=== PATIENT | male | born 1970 | race Caucasian/White ===

== ENCOUNTER 2021-12-22 11:20 | Inpatient (IN) | payer BC, SELFPAY ==
[2021-12-22] VITALS (26 sets, daily range): BP systolic 111–156; BP diastolic 63–106; PULSE 68–102; RESP 13–22; TEMP 36.5–37.5; O2SAT 92–99
--- NOTE | 2021-12-22 11:15 | DI.RAD_ITS ---
Exam(s) XR CHEST 1V IN DI DEPT EXAM: XR CHEST 1V IN DI DEPT CLINICAL HISTORY: possible cva, r/o acute disease. TECHNIQUE: 2D digital imaging was performed. COMPARISON: No exams were available for comparison FINDINGS: Single AP portable view. Suboptimal inspiratory effort. Heart size is upper normal. The mediastinum is not widened. There is platelike atelectasis in the lung bases. No obvious confluent infiltrates nor pleural effusions. IMPRESSION: Platelike atelectasis in both lung bases. Suboptimal inspiration. DATA REPOSITORY: RADIATION DOSE DELIVERED: All CT scans at this facility use at least one of these dose optimization techniques: automated exposure control; mA and/or kV adjustment per patient size (includes targeted e xams where dose is matched to clinical indication); or iterative reconstruction.
--- NOTE | 2021-12-22 11:15 | RT.EKG_ITS ---
APPROVED REPORT Exam: Resting ECG Reason for Exam: possible cva Patient Location: E HR:70 bpm ECG Measurements Heart Rate 70 AXIS PA 141 P 41 QRSd 104 QRS 3 QT 411 T 33 QTc 443 Conclusion Sinus rhythm...normal P axis, V-rate 60- 99 ST elev, probable normal early repol pattern...ST elevation, age<55. Sinus. Benign early repolarization. No STEMI. I have reviewed and interpreted ECG and agree with software generated interpretation.
--- NOTE | 2021-12-22 11:15 | DI.CT_ITS ---
Exam(s) CT HEAD WO EXAM: CT HEAD WO CLINICAL HISTORY: possible stroke, r/o acute cva. TECHNIQUE: Imaging Protocol: Axial computed tomography images with coronal and sagittal reformatted images were created and reviewed COMPARISON: CR XR CHEST 1V IN DI DEPT from 12/22/2021 FINDINGS: There are no skull fractures nor fluid in the visualized paranasal sinuses.. Some mucosal thickenin g is noted in the right maxillary sinus. There is no associated air-fluid level. Other visualized p aranasal sinuses are clear as are the mastoid air cells. There is no evidence of intracranial hemorrhage, mass effect, or shift of midline structures. There are no extra-axial fluid collections. The ventricles are not enlarged or shifted and there is no blo od within the ventricular system nor within the basal cisterns. IMPRESSION: No acute intracranial findings on this noninfused CT scan of the brain. Mild mucosal thickening noted in the right maxillary sinus. No associated fluid level. Report called by myself to ER. RADIATION DOSE DELIVERED: 810.85mGy.cm Total DLP DATA REPOSITORY: All CT scans at this facility are submitted to the National Radiology Data Registry (NRDR) Dose Index Registry (DIR) with the [employer] (A[employer]). RADIATION OPTIMIZATION: All CT scans at this facility use at least one of these dose optimization te chniques: automated exposure control; mA and/or kV adjustment per patient size (includes targeted exa ms where dose is matched to clinical indication); or iterative reconstruction.
--- NOTE | 2021-12-22 11:21 | W.ED.GENAD ---
Discharge Plan Disposition Patient Disposition: [facility] INPATIENT Condition: Stable Discharge Details Clinical Impression: Seizure, Episodic weakness Admit Date/Time: 12/22/21 13:26 Admit Provider: Fadi Vernon Attending Provider: Fadi Vernon Primary Care Provider: Nata Davila ED Provider: Delisa Singletary Discharge Data Discharge Date/Time-TO BE ENTERED AT DEPARTURE: 12/22/21 15:24 Medical Decision Making 1130 -- 51-year-old male with a history of hypertension that is diet-controlled presents for sudden onset of right sided weakness, right facial droop lasting approximately 5 to 10 minutes followed by generalized weakness and dizziness occurring within the last 30 minutes. Patient arrived to the ED as a stroke alert. He was oriented x3 and moving all extremities on arrival. Patient sent directly to radiology for stat noncontrast CT head which was negative. This patient was evaluated during a time of global shortage of iodinated contrast media. Based on guidance from the [employer], best practices, and local institutional approaches, an alternative path for evaluating and managing the patient may have been employed in order to provide optimal care during this shortage. The current situation has been discussed with the patient. Discussed with radiologist and patient referred for stat MRI brain and MRA brain and neck. 1230 --while pt was in MRI, I was called to evaluate as patient became unresponsive. MRI techs noted that patient had blood coming out of his mouth. Patient appeared confused but breathing with a pulse. Patient laid on his side with seizure precautions. Patient brought directly back to the ED with stable vitals. 1300 -- Patient becoming more responsive. Inspection of the mouth notes a laceration to the right tongue which is intact and approximated. Bleeding controlled. Patient appears drowsy and confused but now able to questions. He denies any known seizure history. Per discussion with Dr. Orta, she is recommending 2 g of Keppra IV for concern for seizure and admission for likely seizure with continued monitoring and plan for EEG. He is nontoxic-appearing without fever and normal white blood cell count but may need an LP for further evaluation. Discussed MRI brain with radiologist Dr. Lim who notes abnormal signal in medial left temporal lobe and recommends CTA brain and neck to rule out occlusion. Discussed with hospitalist team who accepts patient for admission. Medical Records Medical records reviewed: Yes I reviewed the patient's medical records. Imaging Data Radiologic Study: Radiologist's impression: CT HEAD WO CLINICAL HISTORY: ? possible stroke, r/o acute cva. ? TECHNIQUE:? Imaging Protocol: Axial computed tomography images with coronal and sagittal reformatted images were created and reviewed COMPARISON:? CR XR CHEST 1V IN DI DEPT from 12/22/2021 FINDINGS: ?There are no skull fractures nor fluid in the visualized paranasal sinuses..? Some mucosal thickening is noted in the right maxillary sinus.? There is no associated air-fluid level.? Other visualized paranasal sinuses are clear as are the mastoid air cells. There is no evidence of intracranial hemorrhage, mass effect, or shift of midline structures.? There are no extra-axial fluid collections.? The ventricles are not enlarged or shifted and there is no blood within the ventricular system nor within the basal cisterns. IMPRESSION: No acute intracranial findings on this noninfused CT scan of the brain. Mild mucosal thickening noted in the right maxillary sinus.? No associated fluid level. Report called by myself to ER. XR CHEST 1V IN DI DEPT CLINICAL HISTORY: ? possible cva, r/o acute disease. ? TECHNIQUE:? 2D digital imaging was performed. COMPARISON:? No exams were available for comparison FINDINGS: Single AP portable view. Suboptimal inspiratory effort. Heart size is upper normal.? The mediastinum is not widened. There is platelike atelectasis in the lung bases. No obvious confluent infiltrates nor pleural effusions. IMPRESSION: Platelike atelectasis in both lung bases.? Suboptimal inspiration. CTA Head With Contrast, Arteriography Exam date and time: 12/22/2021 1:51 PM Age: 51 years old Clinical indication: Other: Possible seizure; R/O occlusion TECHNIQUE: Imaging protocol: Computed tomographic angiography of the head with contrast. Exam focused on the arteries. 3D rendering (Not supervised by radiologist): MIP and/or 3D reconstructed images were created by the technologist. Contrast material: ISOVUE 370; Contrast volume: 85 ml; Contrast route: INTRAVENOUS (IV);? COMPARISON: MR ANGIO BRAIN WO 12/22/2021 11:47 AM FINDINGS: ANTERIOR CIRCULATION: Right internal carotid artery: Atherosclerosis is present. No significant appearing stenosis. Right middle cerebral artery: Normal. Right anterior cerebral artery: Normal. Left internal carotid artery: Normal. Left middle cerebral artery: Normal. Left anterior cerebral artery: Normal. POSTERIOR CIRCULATION: Right vertebral artery: Normal. Left vertebral artery: Normal. Basilar artery: Normal. Right posterior cerebral artery: Normal. Left posterior cerebral artery: Normal. Veins: Normal opacification of the central dural sinuses and major intracranial veins. Brain: No abnormal brain parenchyma or meningeal enhancement. No abnormalities. Cerebral ventricles: Appropriate size. No abnormalities. Mastoid air cells: Clear. Paranasal sinuses: Nodular nonobstructing inferior right maxillary sinus mucosal thickening.. Bones/joints: Intact. No suspicious lesions. Soft tissues: Unremarkable. Other findings: Unenhanced images of the head were obtained initially followed by arteriography.. IMPRESSION: 1. Normal brain. 2. Mild focal right ICA atherosclerosis without significant stenosis. The vessels are otherwise normal. No large vessel occlusion. CTA Neck With Contrast Exam date and time: 12/22/2021 1:51 PM Age: 51 years old Clinical indication: Other: Possible seizure; R/O occlusion TECHNIQUE: Imaging protocol: Computed tomographic angiography of the neck with contrast. 3D rendering (Not supervised by radiologist): MIP and/or 3D reconstructed images were created by the technologist. Radiation optimization: All CT scans at this facility use at least one of these dose optimization techniques: automated exposure control; mA and/or kV adjustment per patient size (includes targeted exams where dose is matched to clinical indication); or iterative reconstruction. Contrast material: ISOVUE 370; Contrast volume: 85 ml; Contrast route: INTRAVENOUS (IV);? COMPARISON: None relevant. FINDINGS: Limitations: Dental implants degrade evaluation of the oropharynx and adjacent soft tissues in bone at that level. Right common carotid artery: Normal. Right internal carotid artery: Atherosclerosis is present. No significant appearing stenosis. Right external carotid artery: Atherosclerosis is present. No significant appearing stenosis. Left common carotid artery: Normal Left internal carotid artery: Atherosclerosis is present. No significant appearing stenosis. Left external carotid artery: Atherosclerosis is present No significant appearing stenosis. Right vertebral artery: Normal. Left vertebral artery: Normal. Other arteries: No significant stenosis with repect to the aorta, brachiocephalic artery or subclavian arteries. No aneursym. No dissection. Lymph nodes: No enlarged or otherwise suspicious lymph nodes. Soft tissues: Unremarkable. Bones/joints: No fracture or suspicious lesion. Spine degenerative changes without significant appearing central stenosis. IMPRESSION: 1. Minimal bilateral proximal ICA calcification. No significant stenosis, vessel occlusion, dissection or aneurysm. 2. No acute abnormalities. Lab Data Lab results reviewed: Yes I reviewed the patient's lab results. Labs: Laboratory Tests Range/Units 12/22/21 12/22/21 12/22/21 11:40 11:40 13:15 WBC (4.4-10.8) 10^3/uL 7.80 RBC (4.36-5.78) 10^6/uL 4.71 Hgb (13.5-17.5) g/dL 14.4 Hct (40.0-50.0) % 40.8 MCV (80-95) fL 87 MCH (27.0-33.0) pg 30.6 MCHC (32.0-36.0) % 35.3 RDW (11.8-14.1) % 12.4 Plt Count (130-400) 10^3/uL 224 MPV (8.0-11.0) fL 9.2 Immature Gran % 0.5 Neutrophils % 63.7 Lymphocytes % 19.0 Monocytes % 15.3 Eosinophils % 0.9 Basophils % 0.6 Nucleated RBC % (0.0-0.3) % 0.0 Absolute Neutrophils (1.2-6.7) 10^3/uL 4.97 Absolute Lymphocytes (1.2-3.4) 10^3/uL 1.48 Absolute Monocytes (0.1-0.8) 10^3/uL 1.19 H Absolute Eosinophils (0.0-0.7) 10^3/uL 0.07 Absolute Basophils (0.0-0.2) 10^3/uL 0.05 Sodium (136-145) mmol/L 140 Potassium (3.5-5.1) mmol/L 3.3 L Chloride (98-107) mmol/L 102 Carbon Dioxide (21.0-32.0) mmol/L 29.1 Anion Gap (3-11) mmol/L 8.9 BUN (7-18) mg/dL 19 H Creatinine (0.70-1.30) mg/dL 1.1 Estimated GFR/1.73 m2 (mL/min/1.73m2) >= 60.00 Glucose (74-106) mg/dL 100 Calcium (8.5-10.1) mg/dL 8.5 Magnesium (1.8-2.4) mg/dL 1.9 Total Bilirubin (0.2-1.0) mg/dL 0.4 AST (15-37) U/L 25 ALT (16-63) U/L 21 Alkaline Phosphatase (46-116) U/L 112 Troponin I (<or=60) ng/L < 50 Total Protein (6.4-8.2) g/dL 7.5 Albumin (3.4-5.0) g/dL 3.8 COVID-19 Source Nasopharynx SARS-CoV-2 (PCR) (Negative) Negative ECG Data Attestation: I personally reviewed and interpreted this ECG (s) as follows: Interpretation: Rate of 70, sinus, benign early repolarization pattern, no STEMI. HPI General Mode of arrival: EMS. Date/Time Provider Initiated Documentation: 12/22/21 11:22. Limitations to Documentation: no limitations. Information obtained by: patient. HPI Narrative: Patient is a 51-year-old male with a history of hypertension that is diet-controlled who presents for sudden onset of right arm and leg weakness followed by generalized weakness, difficulty speaking that lasted for approximately 5 to 10 minutes and then resolved. He states this episode started while he was sitting at his desk at he states he is mainly complaining of dizziness and generalized weakness at this time. He states he ate breakfast and drank water this morning. He denies any recent illness, fever, headache, blurry vision, chest pain, shortness of breath, palpitations, vomiting or diarrhea. He denies any alcohol or drug use. Related Data Home Medications Medication Instructions Recorded Confirmed aspirin 81 mg chewable tablet 81 mg PO DAILY #0 tabs 12/24/21 (Children's Aspirin) atorvastatin 10 mg tablet 10 mg PO QPM #30 tabs 12/24/21 levetiracetam 1,000 mg tablet 1,000 mg PO BID #60 tabs 12/24/21 Previous Rx's Medication Instructions Recorded aspirin 81 mg chewable tablet 81 mg PO DAILY #0 tabs 12/24/21 (Children's Aspirin) atorvastatin 10 mg tablet 10 mg PO QPM #30 tabs 12/24/21 levetiracetam 1,000 mg tablet 1,000 mg PO BID #60 tabs 12/24/21 Allergies Allergy/AdvReac Type Severity Reaction Status Date / Time No Known Allergies Allergy Unverified 12/22/21 14:28 General Stated Complaint: CVA/TIA Review of Systems All systems reviewed & are unremarkable except as noted in HPI and below Constitutional Constitutional: Denies chills, Denies excessive sweating, Denies fatigue, Denies fever(s), Reports weakness and Denies weight loss Eyes Eyes: Reports system reviewed and no additional complaints, except as documented and Denies blurry vision ENT Ears, Nose, Mouth, and Throat: Denies vertigo, Reports dizziness, Denies otalgia, Denies nasal congestion, Denies sore throat and Denies throat swelling Cardiovascular Cardiovascular: Denies chest pain, Denies syncope, Denies rapid heart rate and Denies dyspnea Respiratory Respiratory: Denies chest congestion, Denies cough, Denies pain on inspiration and Denies dyspnea Gastrointestinal Gastrointestinal: Denies abdominal pain, Denies diarrhea and Denies vomiting Genitourinary Genitourinary: Denies hematuria, Denies dysuria and Denies flank pain Musculoskeletal Musculoskeletal: Denies back pain and Denies joint swelling Integumentary/Breasts Skin/Breast: Denies lesions and Denies rash Neurologic Neurologic: Denies behavioral changes, Denies confusion, Denies vertigo, Reports dizziness, Denies syncope, Reports localized weakness and Reports weakness Psychiatric Psychiatric: Denies behavioral changes, Denies confusion and Denies depression Endocrine Endocrine: Denies excessive sweating and Denies fatigue Hematologic/Lymphatic Hematologic/Lymphatic: Denies easy bruising and Denies lymphadenopathy Allergic/Immunologic Allergic/Immunologic: Denies throat swelling PFSH All Active Problems (Updated 12/25/21 @ 16:17 by Delisa Singletary DO) Episodic weakness (Acute) 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 (Acute) Seizure (Acute) Medical History HTN (hypertension) Surgical History No significant past surgical history Social History Smoking/Tobacco Use Status: Never Smoking risk assessment performed?: Yes Alcohol Intake: never Drug use: Never Substance use type: does not use Do you feel safe at home: Yes Do you feel safe in your relationship?: Yes Exam Const General: cooperative Orientation: alert, awake and oriented x3 HENMT Head: normal to inspection Ears: hearing grossly normal bilaterally and external ears normal General nose exam: external nose normal Face and sinus: normal facial exam Eyes General: appearance normal, both eyes and all related structures Eyelids: eyelids normal Pupils: PERRL EOM: EOM intact bilaterally Neck Neck: normal visual inspection Lymphatic: no lymphadenopathy noted Chest Chest: normal inspection of the chest Resp Effort & Inspection: normal respiratory effort and able to speak in complete sentences Auscultation: clear to auscultation bilaterally Cardio Rate: regular rate Rhythm: regular rhythm GI Inspection: normal to inspection Palpation: soft, not firm, no guarding, no hepatosplenomegaly, no masses and nontender Auscultation: normal bowel sounds Back/Spine/Pelvis Back: no CVA tenderness Skin General skin exam: no rashes or lesions noted Neuro General: patient alert, patient awake, patient oriented x3, moves all extremities, no meningeal signs and no focal motor deficits Cranial Nerves: CN's II-XI intact bilaterally Cognition: normal cognition Speech: speech normal Gait: normal gait Motor: muscle tone normal throughout, strength 5/5 throughout and no pronator drift Sensory Exam: no sensory deficits noted Extrem General: normal to inspection, full ROM and capillary refill normal Psych Appearance: grossly normal Mental Status: mental status grossly normal Speech and Movement: speech and movement normal Affect: normal affect Thought Process: normal Critical Care Time Critical Care Time Critical Care Time: Yes Total Critical Care Time: 30 Attestation: I spent 30 minutes of critical care time with this patient. This does not include time spent on separately reported billable procedures.
--- NOTE | 2021-12-22 11:30 | DI.MRI_ITS ---
Exam(s) MR BRAIN WO EXAM: MR BRAIN WO CLINICAL HISTORY: R sided weakness, r/o acute disease TECHNIQUE: Multiplanar multisequence MRI of the brain was performed. COMPARISON: Brain CT scan performed earlier today. FINDINGS: CEREBRAL PARENCHYMA: There is no evidence of intracranial hemorrhage. On the conventional sequences there is no significant signal abnormality in the cerebellar hemisphere s nor within the gutierrez, midbrain, and thalami nor in the Shea in supra ventricular white matter. [place] donn, on diffusion imaging there is abnormal signal evident in the medial left temporal lobe and tempo ral occipital region including hippocampus and para hippocampus. No evidence of hemorrhage at this l evel. PITUITARY GLAND: No mass nor parasellar abnormality. No obvious abnormality in the cavernous sinuses. FLOW VOIDS: The expected flow void are noted. No evidence of obvious aneurysm nor obvious vascular ma lformation. PARANASAL SINUSES: Mucosal thickening noted in the right maxillary sinus, not associated with a fluid level. Other visualized paranasal sinuses are clear, as are the mastoid air cells. ORBITS: No obvious findings. IMPRESSION: There is abnormal restricted diffusion in the medial left temporal lobe involving the hippocampus and para hippocampus and extending posteriorly towards the junction with the exception lobe. No evidenc e of hemorrhage at this level. Suspicious for significant ischemic but cannot exclude possible neopl asm. Other consideration would be for inflammatory-infectious etiology such as encephalitis. Attempted brain MRA study was apparently aborted/suboptimal but does exhibit absence of flow signal w ithin the left posterior cerebral artery in this region, starting approximately 1.8 cm distal to the origin of this vessel. DATA REPOSITORY:
--- NOTE | 2021-12-22 11:30 | DI.MRI_ITS ---
Exam(s) MR ANGIO BRAIN WO EXAM: MR ANGIO BRAIN WO CLINICAL HISTORY: R sided weakness, r/o acute cva TECHNIQUE: Performed on 1.5 scott unit with [id number] sequence. Apparently aborted because of patient having seizure. Nevertheless, some images were obtained COMPARISON: No exams were available for comparison FINDINGS: There is lack of flow in the left posterior cerebral artery starting approximately 1.5 cm distal to i ts origin. This is an important finding because of the findings on the brain MRI study in this vascular territor y Flow is seen in the opposite-right posterior cerebral artery. IMPRESSION: 1. Very suboptimal study because of patient having a seizure during this study and the study was abor ryann. 2. However, there does appear to be significant decrease in flow or occlusion of the left posterior c erebral artery which is an important finding given the findings on diffusion imaging in the medial le ft temporal lobe. Recommend follow-up CT angiography. DATA REPOSITORY:
[2021-12-22 11:47] LABS: Abs Immature Grans 0.04 10^3/uL (0.0-0.06); Absolute Basophil Count 0.05 10^3/uL (0.0-0.2); Absolute Eosinophil Count 0.07 10^3/uL (0.0-0.7); Absolute Lymphocyte Count 1.48 10^3/uL (1.2-3.4); Absolute Monocyte Count 1.19 10^3/uL (0.1-0.8); Absolute Neutrophil Count 4.97 10^3/uL (1.2-6.7); Basophils % 0.6; Eosinophils % 0.9; HCT 40.8 % (40.0-50.0); HGB 14.4 g/dL (13.5-17.5); Immature Grans % 0.5; MCH 30.6 pg (27.0-33.0); MCHC 35.3 % (32.0-36.0); MCV 87 fL (80-95); MPV 9.2 fL (8.0-11.0); Monocytes % 15.3; Neutrophils % 63.7; Platelet Count 224 10^3/uL (130-400); RBC 4.71 10^6/uL (4.36-5.78); RDW 12.4 % (11.8-14.1); RDW-SD 39.6 fL
[2021-12-22 12:12] LABS: ALT 21 U/L (16-63); AST 25 U/L (15-37); Albumin 3.8 g/dL (3.4-5.0); Alkaline Phosphatase 112 U/L (46-116); Anion Gap 8.9 mmol/L (3-11); BUN 19 mg/dL (7-18); Bilirubin, Total 0.4 mg/dL (0.2-1.0); CO2 29.1 mmol/L (21.0-32.0); CREATININE 1.1 mg/dL (0.70-1.30); Calcium 8.5 mg/dL (8.5-10.1); Chloride 102 mmol/L (98-107); Glucose 100 mg/dL (74-106); Magnesium 1.9 mg/dL (1.8-2.4); Potassium 3.3 mmol/L (3.5-5.1); Sodium 140 mmol/L (136-145); Total Protein 7.5 g/dL (6.4-8.2); Troponin I < 50 ng/L (<or=60)
[2021-12-22] MEDS: Normal Saline 1,000 ML 1000 ML IV (12:39)
--- NOTE | 2021-12-22 12:41 | NUR.NOTE ---
Addendum entered by Aretha Casanova RN 12/22/21 13:29: 1330: Patient's at bedside. Pt will go to have CTA with RN shortly. He is stable. Postictal? Forgetful, does not remember coming to ED. Original Note: Nursing Note: At approx 1230 stat call from MRI stating pt is unresponsive. RN arrived to find patient out of MRI machine - laying on his right side. Pt did not respond to stimuli, would open eyes with sternal rub. MRI techs stated he started to move during scan, they thought he was asleep so tried to wake him up when they realized he was unresponsive. They also state they noticed blood coming from the sides of his mouth. He was breathing and pulse was normal. MRI was not completed, patient escorted back to ED by RN and Dr. Singletary. Seizure precautions established.
--- NOTE | 2021-12-22 12:45 | DI.CT_ITS ---
Exam(s) CT BRAIN NECK CTA EXAM: CT BRAIN NECK CTA CLINICAL HISTORY: possible seizure; r/o occlusion. TECHNIQUE: Imaging Protocol: Axial CT angiography was performed with multi-slice acquisition and mu lti-planar and/or 3D reconstructions. CONTRAST MATERIAL: Intravenous: Omnipaque 350 Contrast volume:structured data in ml COMPARISON: MR MR ANGIO BRAIN WO from 12/22/2021 MR MR BRAIN WO from 12/22/2021 FINDINGS: CTA Neck W: Aortic arch anatomy: No evidence of significant stenosis at the origin the great vessels off the ao rtic arch. Anterior circulation: Both common carotid arteries a send with normal luminal diameters. There is only mild plaque and no significant stenosis at the carotid bifurcations and proximal internal carotid arteries.. The left i nternal carotid artery is patent in the upper neck. There appears to be less than optimal opacificat ion of the upper right internal carotid artery in the neck. Bolus timing is somewhat late here. Posterior circulation: Bolus timing is less than optimal with respect to opacification of the vertebral arteries. These vessel exhibit element of atherosclerotic beading although this may be related to the less than optimal contrast enhancement of these vessels. Rate vertebral arteries calcified at the skull base. Left vertebral artery ends at the skull base sup plying the left posterior inferior cerebellar artery. CTA Brain W: Anterior circulation: Internal carotid arteries are patent in the skull base and cavernous sinuses. Supraclinoid aspects a re patent. A1 segments appear patent as are the anterior cerebral arteries. There is no obvious aneurysm at the level of the anterior communicating artery. Middle cerebral arteries are less than optimally opacified. However appear probably patent. Posterior circulation: The dominant right vertebral artery is the main contributor to the formation of the basilar artery at the skull base. Posterior circulationis less than optimally opacified at this level. Distally the ve rtebral artery appears less opacified than on the right side, this corresponding to finding on the so mewhat less than optimal MRA done today. CT BRAIN: There is no evidence of intracranial hemorrhage, mass effect, or shift of midline structures. There are no extra-axial fluid collections. Ventricles are not enlarged or shifted. There are no ring enh ancing lesions in the brain and no abnormal meningeal enhancement. IMPRESSION: 1. Less than optimal bolus timing injection. There appears to be decreased flow in the left vertebral artery corresponds to the finding on the less than optimal MRA done today. 2. No acute intracranial findings on the CT scan. However, please note that this patient had an abn ormal MRI today. Please see that separate report. That study revealed abnormal signal on diffusion im aging in the medial left temporal lobe. RADIATION DOSE DELIVERED: 2,105.84mGy.cm Total DLP DATA REPOSITORY: All CT scans at this facility are submitted to the National Radiology Data Registry (NRDR) Dose Index Registry (DIR) with the [employer] (ACR). RADIATION OPTIMIZATION: All CT scans at this facility use at least one of these dose optimization te chniques: automated exposure control; mA and/or kV adjustment per patient size (includes targeted exa ms where dose is matched to clinical indication); or iterative reconstruction.
[2021-12-22] MEDS: levETIRAcetam 2,000 MG in Normal Saline 100 ML 400 MG IVPB (13:06)
--- NOTE | 2021-12-22 13:19 | NUR.NOTE ---
Nursing Note: Hazel [phone]
[2021-12-22 13:25] LABS: Source Nasopharynx
[2021-12-22 14:27] LABS: COVID-19 PCR Negative (Negative)
--- NOTE | 2021-12-22 15:46 | DI.VRAD_ITS ---
PROCEDURE INFORMATION: Exam: CTA Head With Contrast, Arteriography Exam date and time: 12/22/2021 1:51 PM Age: 51 years old Clinical indication: Other: Possible seizure; R/O occlusion TECHNIQUE: Imaging protocol: Computed tomographic angiography of the head with contrast. Exam focused on the arteries. 3D rendering (Not supervised by radiologist): MIP and/or 3D reconstructed images were created by the technologist. Contrast material: ISOVUE 370; Contrast volume: 85 ml; Contrast route: INTRAVENOUS (IV); COMPARISON: MR ANGIO BRAIN WO 12/22/2021 11:47 AM FINDINGS: ANTERIOR CIRCULATION: Right internal carotid artery: Atherosclerosis is present. No significant appearing stenosis. Right middle cerebral artery: Normal. Right anterior cerebral artery: Normal. Left internal carotid artery: Normal. Left middle cerebral artery: Normal. Left anterior cerebral artery: Normal. POSTERIOR CIRCULATION: Right vertebral artery: Normal. Left vertebral artery: Normal. Basilar artery: Normal. Right posterior cerebral artery: Normal. Left posterior cerebral artery: Normal. Veins: Normal opacification of the central dural sinuses and major intracranial veins. Brain: No abnormal brain parenchyma or meningeal enhancement. No abnormalities. Cerebral ventricles: Appropriate size. No abnormalities. Mastoid air cells: Clear. Paranasal sinuses: Nodular nonobstructing inferior right maxillary sinus mucosal thickening.. Bones/joints: Intact. No suspicious lesions. Soft tissues: Unremarkable. Other findings: Unenhanced images of the head were obtained initially followed by arteriography.. IMPRESSION: 1. Normal brain. 2. Mild focal right ICA atherosclerosis without significant stenosis. The vessels are otherwise normal. No large vessel occlusion. PROCEDURE INFORMATION: Exam: CTA Neck With Contrast Exam date and time: 12/22/2021 1:51 PM Age: 51 years old Clinical indication: Other: Possible seizure; R/O occlusion TECHNIQUE: Imaging protocol: Computed tomographic angiography of the neck with contrast. 3D rendering (Not supervised by radiologist): MIP and/or 3D reconstructed images were created by the technologist. Radiation optimization: All CT scans at this facility use at least one of these dose optimization techniques: automated exposure control; mA and/or kV adjustment per patient size (includes targeted exams where dose is matched to clinical indication); or iterative reconstruction. Contrast material: ISOVUE 370; Contrast volume: 85 ml; Contrast route: INTRAVENOUS (IV); COMPARISON: None relevant. FINDINGS: Limitations: Dental implants degrade evaluation of the oropharynx and adjacent soft tissues in bone at that level. Right common carotid artery: Normal. Right internal carotid artery: Atherosclerosis is present. No significant appearing stenosis. Right external carotid artery: Atherosclerosis is present. No significant appearing stenosis. Left common carotid artery: Normal Left internal carotid artery: Atherosclerosis is present. No significant appearing stenosis. Left external carotid artery: Atherosclerosis is present No significant appearing stenosis. Right vertebral artery: Normal. Left vertebral artery: Normal. Other arteries: No significant stenosis with repect to the aorta, brachiocephalic artery or subclavian arteries. No aneursym. No dissection. Lymph nodes: No enlarged or otherwise suspicious lymph nodes. Soft tissues: Unremarkable. Bones/joints: No fracture or suspicious lesion. Spine degenerative changes without significant appearing central stenosis. IMPRESSION: 1. Minimal bilateral proximal ICA calcification. No significant stenosis, vessel occlusion, dissection or aneurysm. 2. No acute abnormalities. REFERENCES: NASCET CRITERIA. The degree of internal carotid artery stenosis is based on NASCET criteria. Normal is no stenosis. Mild is less than 50% stenosis. Moderate is 50-69% stenosis. Severe is 70% to 99% stenosis. Total occlusion is no detectable patent lumen. Dictated and Authenticated by: Sarwat Polanco MD. Ordering:SOHAIL Hercules MD
[2021-12-22] MEDS: Aspirin 81 MG CHEW PO (17:13)
--- NOTE | 2021-12-22 17:16 | NCONE_ITS ---
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 Santacruz appears to have suffered at least one seizure secondary to an acute left medial temporal/occipital stroke (TUFTING MACHINE OPERATOR SINGLE NEEDLE distribution) manifested by transient right hemiparesis, numbness, and aphasia. Luckily, his symptoms have rapidly resolved though he is a bit fatigued and displaying some confusion at this time. Etiology of his stroke is unknown at this time. He had flawed vascular studies but the L TUFTING MACHINE OPERATOR SINGLE NEEDLE does appear intact as per the CTA. We may consider repeating CTA neck pending further work-up as below. I recommend transfer to ICU for close neurochecks. If any concern for decline/recurrent stroke symptoms, I would recommend consideration of IV heparin drip (no bolus) and transfer to higher level stroke center. Work-up: -repeat MRI brain w/o tomorrow to better assess area of ischemia -TTE with bubble study -Telemetry -A1c -Lipid panel -EEG (not available here until ) Medications: -aspirin 81mg now and daily for secondary stroke prevention -atrovastatin 80mg daily for secondary stroke prevention -continue levetiracetam 1000mg BID for prevention of seizures Other: -Allow permissive hypertension -Physical therapy for gait training -Occupation therapy for upper extremity weakness, activities of daily living -Speech therapy for speech speech evalution History of Present Illness History of Present Illness Chief Complaint: spells Narrative: Handedness: right. HPI: Mr. Santacruz is a 51 year-old man with hypertension. He is a former smoker. At work at approximately 11am today, he developed acute onset right arm numbness and paralysis of the entire right hemibody - recalls his arm was stuck in a fixed position (not flaccidly weak) though he reportedly as a facial droop. At the same time he was unable to speak. His symptoms apparently improved after about 10minutes after which he reported generalized weakness and dizziness. Mr. Santacruz has poor recollection of the event. It does not seem any event of RAIN was reported at that time. He was brought by ambulance to [facility] where he was noted to be back to baseline. His BP was 145/96. While in the ER and while undergoing MRI, he had an episode of unresponsiveness with tongue biting concerning for seizure. He was loaded with Keppra 2000mg IV. He underwent work-up as below which is concerning for large left temporal infarct. He was not a candidate for tPA due to resolved symptoms. He has since been groggy and notes that he remains confused - repeating questions, but otherwise appears well. He has episodes of heart racing palpitation. He has no family or personal history of seizure. He has no history of TBI or CAM MILLING MACHINE OPERATOR infection. His was significant for older maternal age but otherwise non-significant. He had delayed speech but the story goes that once he started speaking he spoke in whole sentences. He struggled in school and presumes that he has ADD. He completed some college. Work-up: -CTH (12/22/21): no acute findings. -MRI brain w/o (12/22/21): Acute left medial temporal and occipital infarct in the TUFTING MACHINE OPERATOR SINGLE NEEDLE distribution. I reviewed these images personally and this is my personal interpretation. -MRA head (12/22/21): suboptimal study as patient as seizure event during the study. Concerning for L TUFTING MACHINE OPERATOR SINGLE NEEDLE occlusion. I reviewed these images personally and this is my personal interpretation. -CTA head/neck (12/22/21): suboptimal study due to poor timing of the contrast bolus for the neck portion. Intracranially we can see the L TUFTING MACHINE OPERATOR SINGLE NEEDLE is intact. Rads was concered there may be poor flow in the L vertebral artery. I reviewed these images personally and this is my personal interpretation. -Labs (12/22/21): W 7.8, Hgb 14.4, Plt 224, Na 140, K 3.3, Cr 1.1, BUN 19, trop x2 neg PFSH All Active Problems (Updated 12/22/21 @ 19:23 by Fadi Vernon MD) Acute ischemic left posterior cerebral artery (TUFTING MACHINE OPERATOR SINGLE NEEDLE) stroke (Acute) Seizure (Acute) Medical History HTN (hypertension) Surgical History No significant past surgical history Social History Smoking/Tobacco Use Status: Never Smoking risk assessment performed?: Yes Alcohol Intake: never Drug use: Never Substance use type: does not use Do you feel safe at home: Yes Do you feel safe in your relationship?: Yes Visit Medication and Allergies Active Medications Generic Name Dose Route Start Last Admin Trade Name Freq PRN Reason Stop Dose Admin Acetaminophen 0 mg 12/22/21 13:31 Acetaminophen 325 Mg Tab PO Q4H PRN PRN Aspirin 81 mg 12/22/21 16:55 12/22/21 17:13 Aspirin 81 Mg Chew PO 81 mg DAILY WAI Administration Dimethicone/Zinc Oxide 0 gm 12/22/21 13:26 Gracie Protect Cream 142 Gm Tube TP PRN PRN Levetiracetam 1,000 mg 12/22/21 20:00 Levetiracetam 500 Mg Tab PO BID WAI Lidocaine HCl 6 ml 12/22/21 17:00 Lidocaine 2% Jelly 6 Ml Syr TP DIRECTED [facility]AI Polyethylene Glycol 17 gm 12/22/21 13:31 Polyethylene Glycol 3350 17 Gm Packet PO DAILY PRN PRN Constipation Allergies No Known Allergies Allergy (Unverified 12/22/21 14:28) Exam Narrative Exam Narrative: Physical Exam: Gen: Patient of apparent stated age, NAD Head and face: no facial or cranial abnormalities Neck: Supple, no meningismus, no occipital tenderness CV: + S1, S2, RRR, no murmur Resp: CTA B/L Abd: soft, nontender, nondistended Ext: No edema. No clubbing or cyanosis. No bony deformity. Neuro Exam: Language: fluency, naming, repetition, and comprehension intact; Mental Status: AAOx3, current events limited, fund of knowledge intact; Speech: no dysarthria Cranial nerves: Funduscopy: not performed CN II: visual pineda intact CN III, IV, : extraocular movements intact, no nystagmus, pupils symmetric and reactive to light CN V: face sensation intact to LT and PP CN VII: no facial asymmetry noted CN VIII: hearing intact bilaterally CN IX, X: palate rises symmetrically CN XI: trapezius/SCM 5/5 bilaterally CN XII: protrudes tongue symmetrically Sensory: intact to LT, PP in all extremities Motor: bulk and tone intact. Fine motor movements intact bilaterally. No pronator drift. Strength 5/5 throughout including the deltoids, biceps, triceps, wrist extensors, hip flexors, knee flexors, knee extensors, ankle flexors, and ankle extensors. Reflexes: 2+ at the biceps, triceps, brachioradialis, patella, and achilles tendons bilaterally; toe down going on left and neutral on R Coordination: FTN and HTS intact bilaterally Gait: not tested NIHSS: 0 DEPRESSION SCREEN: Results Last Vital Signs Temp 98.1 F 12/22/21 16:03 Pulse 94 H 12/22/21 16:03 Resp 20 12/22/21 16:03 BP 156/97 H 12/22/21 16:03 Pulse Ox 96 12/22/21 16:03 Labs Result diagrams: 12/22/21 11:40 12/22/21 11:40 Labs: Laboratory Results - last 24 hr 12/22/21 12/22/21 12/22/21 11:40 11:40 13:15 WBC 7.80 RBC 4.71 Hgb 14.4 Hct 40.8 MCV 87 MCH 30.6 MCHC 35.3 RDW 12.4 Plt Count 224 MPV 9.2 Immature Gran % 0.5 Neutrophils % 63.7 Lymphocytes % 19.0 Monocytes % 15.3 Eosinophils % 0.9 Basophils % 0.6 Nucleated RBC % 0.0 Absolute Neutrophils 4.97 Absolute Lymphocytes 1.48 Absolute Monocytes 1.19 H Absolute Eosinophils 0.07 Absolute Basophils 0.05 Sodium 140 Potassium 3.3 L Chloride 102 Carbon Dioxide 29.1 Anion Gap 8.9 BUN 19 H Creatinine 1.1 Estimated GFR/1.73 m2 >= 60.00 Glucose 100 Calcium 8.5 Magnesium 1.9 Total Bilirubin 0.4 AST 25 ALT 21 Alkaline Phosphatase 112 Troponin I < 50 Total Protein 7.5 Albumin 3.8 COVID-19 Source Nasopharynx SARS-CoV-2 (PCR) Negative
[2021-12-22 17:26] LABS: Troponin I < 50 ng/L (<or=60)
--- NOTE | 2021-12-22 18:53 | NUR.NOTE ---
Nursing Note: Patient changed to ICU status. This RN gave report to Ibis Batista RN. Patient and patient aware of this transition. Patient transitioned to ICU at 1847.
--- NOTE | 2021-12-22 19:04 | W.PM.HP.N ---
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 Cont ASA 81 mg daily. Close monitoring. A1c, Lipid panel. Echocardiogram. Neurology following. (2) Seizure: Status: Acute Assessment and plan: Questionable initial seizure event prior to presentation and then a witnessed unresponsive event in radiology (tongue biting and appearance of post-ictal state). Loaded with IV Keppra and now on oral 1000mg BID. EEG (unable to obtain until , 12/24) (3) HTN (hypertension): Assessment and plan: Not on medications. Watch for hypotension. History of Present Illness History of Present Illness Chief Complaint: Right upper and lower extremity weakness Narrative: This is a 51 yo male with a PMH of HTN (not on medication, controlled with diet) . He endorsed having a normal morning, then when siting at his desk at work he developed right arm and leg weakness followed by generalized weakness with difficulty with speech. These symptoms lasted for 5-10 minutes and resolved. He then presented to the ED for evaluation and a stroke alert called. On initial evaluation he moved all extremities and was oriented x 3. Noncontrast CT was negative. MRI and MRA brain/neck obtained. While in MRI he had an unresponsive episode. He was then noted to have some blood from his mouth and a small tongue laceration. He was confused with normal vital signs. He gradually became more responsive but still drowsy. Dr Orta, neurology, consulted and per her recommendation he was load with Keppra 2g IV. MRI/MRA brain showed significant decrease in flow or occlusion of the left posterior cerebral artery which is an important finding given the findings on diffusion imaging in the medial left temporal lobe. Discussed with [facility] neurologist regarding possible right middle cerebral artery occlusion, but they and Dr Orta stated this was not present. He was given an aspirin 81 mg daily and admitted for further stroke w/u. Review of Systems All systems reviewed & are unremarkable except as noted in HPI and below PFSH All Active Problems (Updated 12/22/21 @ 19:23 by Fadi Vernon MD) Acute ischemic left posterior cerebral artery (SITE LEASING AGENT) stroke (Acute) Seizure (Acute) Medical History HTN (hypertension) Surgical History No significant past surgical history Social History Smoking/Tobacco Use Status: Never Smoking risk assessment performed?: Yes Alcohol Intake: never Drug use: Never Substance use type: does not use Do you feel safe at home: Yes Do you feel safe in your relationship?: Yes Meds Allergies and Home Medications Allergies Allergy/AdvReac Type Severity Reaction Status Date / Time No Known Allergies Allergy Unverified 12/22/21 14:28 Home Medications Medication Instructions Recorded Confirmed Type Unknown [No Known Home Meds] 12/22/21 12/22/21 History Exam Narrative Exam Narrative: Sitting up in bed. Appears tired but is conversant. is present. Const General: cooperative and no acute distress Nutritional Appearance: average body habitus Orientation: awake and oriented x3 HENMT Head: normocephalic and atraumatic Ears: hearing grossly normal bilaterally Eyes General: appearance normal, both eyes and all related structures Sclera: sclerae normal Pupils: PERRL Neck Neck: full ROM and no JVD Resp Effort & Inspection: normal respiratory effort Auscultation: clear to auscultation bilaterally Cardio Rate: regular rate Rhythm: regular rhythm Heart Sounds: S1 normal and S2 normal GI Palpation: soft and nontender Skin General skin exam: no rashes or lesions noted Neuro General: no focal motor deficits and patient confused (mild but corrects himself. ) Cranial Nerves: PERRL, no nystagmus and facial strength normal Speech: speech normal Extrem General: no pedal edema and no calf tenderness Psych Appearance: grossly normal Affect: normal affect Results Labs Result diagrams: 12/22/21 11:40 12/22/21 11:40 Labs: Laboratory Results - last 24 hr 12/22/21 12/22/21 12/22/21 11:40 11:40 13:15 WBC 7.80 RBC 4.71 Hgb 14.4 Hct 40.8 MCV 87 MCH 30.6 MCHC 35.3 RDW 12.4 Plt Count 224 MPV 9.2 Immature Gran % 0.5 Neutrophils % 63.7 Lymphocytes % 19.0 Monocytes % 15.3 Eosinophils % 0.9 Basophils % 0.6 Nucleated RBC % 0.0 Absolute Neutrophils 4.97 Absolute Lymphocytes 1.48 Absolute Monocytes 1.19 H Absolute Eosinophils 0.07 Absolute Basophils 0.05 Sodium 140 Potassium 3.3 L Chloride 102 Carbon Dioxide 29.1 Anion Gap 8.9 BUN 19 H Creatinine 1.1 Estimated GFR/1.73 m2 >= 60.00 Glucose 100 Calcium 8.5 Magnesium 1.9 Total Bilirubin 0.4 AST 25 ALT 21 Alkaline Phosphatase 112 Troponin I < 50 Total Protein 7.5 Albumin 3.8 COVID-19 Source Nasopharynx SARS-CoV-2 (PCR) Negative 12/22/21 16:15 WBC RBC Hgb Hct MCV MCH MCHC RDW Plt Count MPV Immature Gran % Neutrophils % Lymphocytes % Monocytes % Eosinophils % Basophils % Nucleated RBC % Absolute Neutrophils Absolute Lymphocytes Absolute Monocytes Absolute Eosinophils Absolute Basophils Sodium Potassium Chloride Carbon Dioxide Anion Gap BUN Creatinine Estimated GFR/1.73 m2 Glucose Calcium Magnesium Total Bilirubin AST ALT Alkaline Phosphatase Troponin I < 50 Total Protein Albumin COVID-19 Source SARS-CoV-2 (PCR) Last Vital Signs Temp 37.1 C 12/22/21 18:03 Pulse 102 H 12/22/21 18:03 Resp 20 12/22/21 18:03 BP 148/98 H 12/22/21 18:03 Pulse Ox 96 12/22/21 18:03
[2021-12-22 22:24] LABS: HCT 40.8 % (40.0-50.0); HGB 14.4 g/dL (13.5-17.5)
[2021-12-23] VITALS (45 sets, daily range): BP systolic 117–157; BP diastolic 68–107; PULSE 66–98; RESP 12–22; TEMP 36.8–37.5; O2SAT 93–96
--- NOTE | 2021-12-23 | DI.MRI_ITS ---
Exam(s) MR BRAIN WO EXAM: MR BRAIN WO CLINICAL HISTORY: CVA TECHNIQUE: Multiplanar multisequence MRI of the brain was performed. COMPARISON: MR MR BRAIN WO from 12/22/2021 MR MR ANGIO BRAIN WO from 12/23/2021 FINDINGS: CEREBRAL PARENCHYMA: There is further progression of restricted diffusion signal abnormality on DWI in the medial occipito temporal region implying progression of ischemic damage when compared to yesterday's study. Correspo nding low signal on the ADC map also noted and signal abnormality on more conventional sequences such as T2 and FLAIR is more evident on today's study. There is no significant focal signal abnormality in the cerebellar hemispheres nor within the gutierrez, m idbrain, and thalami. There is no abnormal signal abnormality in the periventricular white matter. SWI: There is a tiny focus of hypointense signal in the left medial occipitotemporal gyrus, this bein g the area with new restricted diffusion as seen on today's DWI sequence. PITUITARY GLAND: No mass nor parasellar abnormality. No obvious abnormality in the cavernous sinuses. FLOW VOIDS: There is absent flow void in the right vertebral artery at the skull base, possibly signi ficant here. Anterior circulation flow voids appear unremarkable. PARANASAL SINUSES: Mucosal thickening in the right maxillary sinus is again noted. ORBITS: No obvious findings. IMPRESSION: Compared to the MRI scan performed yesterday there is evolution and some progression of ischemic invo lvement in the medial left occipitotemporal region, as described above. The FLAIR and T2 sequences a re ???catching up??? to the diffusion imaging findings. In addition, on today's study there is an ad ditional adjacent area of infarct now evident on DWI in the left medial occipitotemporal gyrus. Please note that today's MRA study reveals decreased flow in the left posterior cerebral artery at th is level when compared to the opposite-right posterior cerebral artery. There is also absence of dale w signal in the right vertebral artery at the skull base. Flow in the basilar artery is predominantl y via the left patent vertebral artery. There is no abnormal signal in the posterior fossa cerebellar hemispheres nor within the gutierrez and mid brain. DATA REPOSITORY:
[2021-12-23] MEDS: levETIRAcetam 1,000 MG in Normal Saline 100 ML 400 MG IVPB ×3 (00:12→21:15)
[2021-12-23] MEDS: Sucralfate 1 GM TAB PO ×2 (00:12→09:16)
[2021-12-23] MEDS: Pantoprazole 40 MG VIAL IVP ×2 (00:12→09:30)
[2021-12-23 06:38] LABS: HCT 40.7 % (40.0-50.0); HGB 13.8 g/dL (13.5-17.5); MCH 30.1 pg (27.0-33.0); MCHC 33.9 % (32.0-36.0); MCV 89 fL (80-95); MPV 9.6 fL (8.0-11.0); Platelet Count 206 10^3/uL (130-400); RBC 4.59 10^6/uL (4.36-5.78); RDW 12.8 % (11.8-14.1); RDW-SD 41.7 fL; WBC 9.24 10^3/uL (4.4-10.8)
[2021-12-23 07:00] LABS: Hemoglobin A1C 5.1 % (<5.7)
[2021-12-23 07:02] LABS: Calculated LDL 57 mg/dL (<100); Cholesterol 156 mg/dL (<200); HDL Cholesterol 37 mg/dL (40-60); Triglyceride 311 mg/dL (<150)
--- NOTE | 2021-12-23 08:14 | PGE_ITS ---
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 Santacruz appears to have suffered at least one seizure secondary to an acute left medial temporal/occipital stroke (AUDIT CLERKS SUPERVISOR distribution) manifested by transient right hemiparesis, numbness, and aphasia. Luckily, his symptoms have rapidly resolved though he is a bit fatigued and displaying some confusion at this time. Etiology of his stroke is unknown at this time. He had flawed vascular studies but the L AUDIT CLERKS SUPERVISOR does appear intact as per the CTA. We may consider repeating CTA neck pending further work-up as below. Continue close neurochecks. If any concern for decline/recurrent stroke symptoms, I would recommend consideration of IV heparin drip (no bolus) and transfer to higher level stroke center. Work-up: -repeat MRI brain w/o today to better assess area of ischemia -TTE with bubble study -Telemetry -A1c -Lipid panel -EEG (not available here until , but ok as outpatient) Medications: -aspirin 81mg now daily for secondary stroke prevention -atrovastatin 80mg daily for secondary stroke prevention -continue levetiracetam 1000mg BID for prevention of seizures Other: -Allow permissive hypertension -Physical therapy for gait training -Occupation therapy for upper extremity weakness, activities of daily living -Speech therapy for speech speech evaluation Otherwise, per [place] state law where he lives, he cannot drive for a period of 12 months, though there is a clause that this could be shortened by the DMV... I discussed today with him a period of seizure freedom of at least 6 months before he is cleared to drive. 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 Subjective Subjective Interval history since last seen: After he was seen yesterday, transferred to ICU. He had an episode of emesis. Otherwise, no new events overnight. He seems less confused today. Tele strips from overnight being reviewed. Exam Narrative Exam Narrative: Physical Exam: Constitutional: Patient of apparent stated age, well nourished, well developed, no acute distress Neuro: MS/Language/Speech: Alert, oriented, clear language (fluency, naming, repetition, and comprehension intact - able to follow a 3-step command across the midline), no dysarthria CN: EOMI, visual pineda full, trigeminal sensation intact, no facial asymmetry, hearing intact Motor: Normal bulk and tone. FMM intact, no pronator drift. 5/5 strength in bilateral upper and lower extremities. Coordination: Finger to nose performed without dysmetria Objective Last Vital Signs Temp 99.5 F 12/23/21 04:00 Pulse 77 12/23/21 05:00 Resp 17 12/23/21 05:00 BP 144/82 H 12/23/21 05:00 Pulse Ox 93 12/23/21 05:00 Laboratory Results - last 24 hr 12/22/21 12/22/21 12/22/21 11:40 11:40 13:15 WBC 7.80 RBC 4.71 Hgb 14.4 Hct 40.8 MCV 87 MCH 30.6 MCHC 35.3 RDW 12.4 Plt Count 224 MPV 9.2 Immature Gran % 0.5 Neutrophils % 63.7 Lymphocytes % 19.0 Monocytes % 15.3 Eosinophils % 0.9 Basophils % 0.6 Nucleated RBC % 0.0 Absolute Neutrophils 4.97 Absolute Lymphocytes 1.48 Absolute Monocytes 1.19 H Absolute Eosinophils 0.07 Absolute Basophils 0.05 Sodium 140 Potassium 3.3 L Chloride 102 Carbon Dioxide 29.1 Anion Gap 8.9 BUN 19 H Creatinine 1.1 Estimated GFR/1.73 m2 >= 60.00 Glucose 100 Hemoglobin A1c Calcium 8.5 Magnesium 1.9 Total Bilirubin 0.4 AST 25 ALT 21 Alkaline Phosphatase 112 Troponin I < 50 Total Protein 7.5 Albumin 3.8 Triglycerides Total Cholesterol LDL Cholesterol, Calc HDL Cholesterol COVID-19 Source Nasopharynx SARS-CoV-2 (PCR) Negative 12/22/21 12/22/21 12/23/21 16:15 22:09 05:22 WBC RBC Hgb 14.4 Hct 40.8 MCV MCH MCHC RDW Plt Count MPV Immature Gran % Neutrophils % Lymphocytes % Monocytes % Eosinophils % Basophils % Nucleated RBC % Absolute Neutrophils Absolute Lymphocytes Absolute Monocytes Absolute Eosinophils Absolute Basophils Sodium Potassium Chloride Carbon Dioxide Anion Gap BUN Creatinine Estimated GFR/1.73 m2 Glucose Hemoglobin A1c 5.1 Calcium Magnesium Total Bilirubin AST ALT Alkaline Phosphatase Troponin I < 50 Total Protein Albumin Triglycerides Total Cholesterol LDL Cholesterol, Calc HDL Cholesterol COVID-19 Source SARS-CoV-2 (PCR) 12/23/21 12/23/21 05:22 05:22 WBC 9.24 RBC 4.59 Hgb 13.8 Hct 40.7 MCV 89 MCH 30.1 MCHC 33.9 D RDW 12.8 Plt Count 206 MPV 9.6 Immature Gran % Neutrophils % Lymphocytes % Monocytes % Eosinophils % Basophils % Nucleated RBC % Absolute Neutrophils Absolute Lymphocytes Absolute Monocytes Absolute Eosinophils Absolute Basophils Sodium Potassium Chloride Carbon Dioxide Anion Gap BUN Creatinine Estimated GFR/1.73 m2 Glucose Hemoglobin A1c Calcium Magnesium Total Bilirubin AST ALT Alkaline Phosphatase Troponin I Total Protein Albumin Triglycerides 311 H Total Cholesterol 156 LDL Cholesterol, Calc 57 HDL Cholesterol 37 L COVID-19 Source SARS-CoV-2 (PCR)
--- NOTE | 2021-12-23 08:56 | INITIAL_ITS ---
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 Seizure (Acute). Medical History. HTN (hypertension). Surgical History. No significant past surgical history PREVIOUS FUNCTIONAL STATUS/SOCIAL/FAMILY SUPPORTS:: Cecilio lives in [place], [place] with his , Hazel and their children. 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 He is independent at baseline. CURRENT FUNCTIONAL STATUS:: Cecilio was lying in bed when CM met with him. His , Hazel, was in the room visiting. He stated that he is very independent, making hospitalization very difficult for him. Per MD, he will have an MRI/MRA and echo today, and an EEG tomorrow. He is currently on IV Keppra, and has wo rked with PT today. He expressed concern about missing work, as MD has informed him that he should not drive for 6 months. CM will continue to follow. ADVANCE DIRECTIVES:: Not on file. Has patient been provided with info about the portal/API?: Yes Did the patient sign up for the portal?: No CODE STATUS:: Full Code INSURANCE COVERAGE / FINANCIAL ISSUES:: BCBS CURRENT HOME/COMMUNITY SERVICES/EQUIPMENT:: No services or equipment. PRIMARY CARE PHYSICIAN:: Nata Kaplan-Best POTENTIAL DISCHARGE NEEDS:: Follow up appointments, return to work letter. PATIENT/FAMILY EDUCATION NEEDS:: Review discharge instructions and limitations, discussion of self care needs including ask me three. ANTICIPATED BARRIERS TO DISCHARGE:: None identified. TRANSPORTATION:: Via private vehicle by his . PLAN:: Anticipate Cecilio will return home once medically cleared vs transfer if indicated. He will follow up with his PCP and transport with his . CM will continue to follow.
[2021-12-23] MEDS: Atorvastatin 40 MG TAB 80 MG PO (09:16)
[2021-12-23] MEDS: Normal Saline Flush 10 ML SYR ×3 (09:18→09:21)
--- NOTE | 2021-12-23 09:21 | OT.INIE ---
Occupational Therapy Notes Inpatient Occupational Therapy Evaluation Date: 12/23/21 Referring Doctor:Fadi Vernon MD OT Orders: Non urgent Precautions: Fall, standard, Full PATIENT PROFILE/ADMITTING DIAGNOSIS: Pt is a 51 year old male who was admitted through the ED for an acute ischemic (L) posterior cerebral artery (COLLECTOR OF AQUARIUM SPECIMENS) stroke and seizure. Past Medical History: All Active Problems?(Updated 12/22/21 @ 19:23 by Fadi Vernon MD) Acute ischemic left posterior cerebral artery (COLLECTOR OF AQUARIUM SPECIMENS) stroke (Acute) Seizure (Acute) Medical History? HTN (hypertension) Surgical History? No significant past surgical history Social History/Home Situation: Pt reports that he is a healthy 51 year old male. He is (I) at his baseline and lives in a private home with his and a bunch of kids. Equipment owned/DME: None. SUBJECTIVE: Pt was lying in bed when OT arrived. He notes that he has not been up since his admission and would like to move around more. OBJECTIVE: General Observation: IV, telemetry, BP cuff, pleasant and agreeable to session. Mental Status: A&Ox4 Pain: no c/o pain ROM: RUE AROM WFL L UE AROM WFL STRENGTH: RUE 5/5 throughout LUE 5/5 throughout FUNCTIONAL MOBILITY/ADLS: Transfers Supine-sit (I) Sit-supine (I) BATHING Pt denies but is able to perform his ROM WFL DRESSING sitting on side of the bed Dressing UE (I) Dressing LE (I) with no LOB or difficulty EATING not able to eat at this time, NPO per pt report. BALANCE: Static sitting Normal Dynamic Sitting Good pt states that he was dizzy at start of the sitting position but tolerated this well. SPECIAL TESTS: Daily Activity Limitations Standardized Measure [facility] AM -PAC ?6 clicks? Daily Activity Inpatient Short Form: Raw score: 23 Standardized score: 51.12 CMS score: 15.86% INFORMED CONSENT/EDUCATION: Pt instructed in purpose of OT Consult and plan of care. ASSESSMENT: Patient is a 51-year-old male referred to occupational therapy services with diagnosis of acute ischemic (L) posterior cerebral artery stroke (COLLECTOR OF AQUARIUM SPECIMENS), seizure. Patient presents with clinical signs and symptoms consistent with dx. OT went in to see pt who reports that he feels that he is at his baseline level of function. He denied bathing but was able to perform his ADL tasks during consult (I) with no weakness or concerns. He has support at home in terms of performance of his ADLs and was receptive to education and training provided. AMPAC score 23 Patient is assessed as a Low 89250 complexity based on the following: History: see above Examination: see functional limitations as noted above Presentation: evolving Decision Making: AMPAC score 23 GOALS N/A PLAN OF CARE/TREATMENT PLAN: Seen for OT consult only. DISCHARGE RECOMMENDATIONS OT recommends that pt return home when medically cleared per MD. TREATMENT TIME/MINUTES/CODES 36760, 15 minutes (08:05) Gilma Cueto OTR/[facility]
--- NOTE | 2021-12-23 10:22 | SP_ITS ---
Date of service: 12/23/21 Time of Service: 11:00 Subjective DERIVATIVES TRADER Communication / Non-Treatment Screening Note Consult order received; chart reviewed. DERIVATIVES TRADER spoke with ICU staff as patient's RN, Katy was occupied at time of call this AM; per ICU staff, patient demonstrates improved overall status relative to previous day; current reason for consult ie dysphagia eval and NPO status. Patient met w OT / PT this date, currently conversing with at time of call. Patient assessed at bedside after visit with Hospitalist; agreeable to brief screening for swallow function as well as cognitive-communication screen below. Food items tested: ?? [x ] IDDSI 0: WFL [x ] IDDSI 7:WFL [x ] Pill/tablet: WFL (whole w thins) CNE/OME: WFL Oral phase: [x ] WFL Pharyngeal phase: [ x] WFL [place] Swallow Protocol: Pass Standardized: N/A IMPRESSIONS: Patient is at low risk for aspiration-related pulmonary complication, given adequate oral hygiene & presumed immunocompetence; improvements in physical mobility and overall pulmonary function likely to further reduce this risk. Cognitive-communication function deemed WFL per both informal (delayed recall, conversation/language/pragmatics) and formal subtests (WAB-R Bedside re: Auditory Verbal Comprehension, Sequential Commands, and Naming. Communicated recommendations from screening with Dr Vernon and RN this date. ? Provided education to patient/ re: anatomy/physiology of swallowing mechanism, overt s/sx to monitor for re: potential aspiration of food or liquids, relationship between respiratory function changes and deglutition, possible effects from CVA on speech/swallowing/cognitive-communication (not noted during screening this date) Instrumentation: N/A Diet Texture Modification(s): IDDSI Level(s) 7-Regular Solids / 0-Thin Liquids Medication Intake: Whole with 0-Thin Liquids Alter medications only as advised by MD or Pharmacist RISK MANAGEMENT: Oral hygiene BID/2x per day using friction with toothbrush on all oral structures as tolerated HOB upright as tolerated; upright for all PO intake. Encourage physical mobility as tolerated. Level of Assistance/Supervision: Independent PO intake only when awake/alert? Strategies/Adaptations/Assistive Equipment: Reduce auditory and/or visual distractions when eating Posture/Positioning Needs: Maintain upright position at least 30 minutes after meals, Avoid meals/snacks 2- 3 hours prior to reclining/sleeping, Sleep with head of bed elevated to reduce likelihood of nocturnal reflux Specialist referrals: N/A Ancillary tests: N/A Therapy: N/A Goal: N/A PLAN: Further DERIVATIVES TRADER services not warranted at this time. Patient and made aware of DERIVATIVES TRADER service availability close to place of residence and/or locally in [facility] via [facility] DERIVATIVES TRADER. Please re-consult PRN. Shandra Aguero MA CCC-DERIVATIVES TRADER Speech-Language Pathologist ME#[phone] Coding
--- NOTE | 2021-12-23 11:21 | IN_ITS ---
PT Notes Visit Reasons: unresponsive event
--- NOTE | 2021-12-23 11:21 | PT.INIE ---
PT Notes Visit Reasons: unresponsive event
--- NOTE | 2021-12-23 11:22 | IN_ITS ---
PT Notes Visit Reasons: unresponsive event Inpatient Physical Therapy Evaluation Date: 12/23/2021 Referring Doctor: Fadi Vernon MD PT Orders: PT CONSULT: Left CVA Precautions: Fall risk Patient Profile/Admitting Diagnosis: 51-year-old male who developed an onset of right-sided weakness, nausea and difficulty speaking yesterday. He was admitted to the hospital with left CVA. He has no significant improvement in his symptoms since. No complaints of pain or weakness. 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 HTN (hypertension) Surgical History? No significant past surgical history Social History/Home Situation: , with 7 children, lives in [facility]. He works for [employer] here in [place] at the [employer] [facility] [employer]. Current Functional Limitations: Independent with all ADLs Equipment Owned/DME: None needed Subjective: Pleasant, cooperative and anxious to return home and to his normal lifestyle. He feels capable of doing that currently. Objective: General Observation: Enters room and is dozing, and anxious to get going. Answ ers questions spontaneously without slurring etc. Mental Status: Alert and oriented x3. Pain: None mentioned Vital Signs: His blood pressure following activity was 136/107 and pulse 82 bpm ROM: Is full pain-free range of motion throughout. Negative effusion erythema or warmth of his articular structures Strength: Has full motorical control throughout without drifting. His upper extremity strength is rated 5/5, and he has subtle weakness with the right lower extremity and -5/5. Neuro: His right KJ and AJ are +3 and left +2, biceps, brachioradialis, and triceps are +2 and symmetrical. Negative Babinski bilaterally. Negative spasticity. Sensations intact to light touch, proprioception. Negative acalculia, stereognosis, or apraxia. Fingertips to nose is accurate without ataxia, rapid repetitive arm movements are unimpaired. He has a positive gag reflex. Negative heminopsia Bed Mobility/Transfers: Independent with all bed mobilities Gait: Ambulated greater than 150 feet with standby supervision. He is able walk on his heels and toes without weakness. He is able to walk heel-to-toe forward and backwards with SBA. His unilateral standing balance is mildly impaired on the right compared to the left. Negative Romberg sign Balance: His static and dynamic sitting and standing balance within normal limits other than some mild impairment with unilateral standing on the right leg Special Tests: Mobility Limitations Standardized Measure [facility] AM-PAC 6 clicks Basic Mobility Inpatient Short Form: Raw Score: 0 standardized Score: CMS Score: 100% Informed Consent/Education: Patient instructed in purpose of PT consult and plan of care. Assessment: Patient is a 51year old male referred to physical therapy services with the diagnosis of left CVA. Patient presents with clinical signs and symptoms consistent with this diagnosis, although appears to have good spontaneous recovery other than some mild hyperreflexia with his right KJ and AJ, and some subtle weakness of the right lower extremity. Impairments are contributing to the following functional limitations: Refer to the above Patient is assessed as a Low 68363 complexity based on the following: History: See comorbidities and social history Examination: See above for functional limitations and impairments Presentation: Stable Decision Making: Low complexity based on his clinical findings Goals: Normalize strength and balance of the right lower extremity Plan of Care/Treatment Plan: The session consisted of evaluation along with gait training. He will be seen later today by Julia Smart PTA and instructed in home exercise program consisting of strengthening exercises of the right lower extremity for home exercise program. Anticipate discharge at that time. DISCHARGE RECOMMENDATIONS: x Home with no services TREATMENT CODE/TIME: 16450/87096/45 minutes
--- NOTE | 2021-12-23 11:30 | DI.MRI_ITS ---
Exam(s) MR ANGIO BRAIN WO EXAM: MR ANGIO BRAIN WO CLINICAL HISTORY: R sided weakness, r/o acute cva TECHNIQUE: Performed on 1.5 scott unit with [id number] sequence. Compared to yesterday's suboptimal study. This patient experienced a seizure during yesterday's stud y which had to be aborted and which yielded suboptimal images COMPARISON: MR MR ANGIO BRAIN WO from 12/22/2021 MR MR BRAIN WO from 12/22/2021 FINDINGS: ANTERIOR CIRCULATION: Both internal carotid arteries are patent in the skull base-carotid canals as well as within the cave rnous sinuses. The supraclinoid aspects of both internal carotid arteries are patent and nonaneurysma l. Both A1 segments are patent as are both anterior cerebral arteries and there is no evidence of ane urysm at the level of the anterior communicating artery nor elsewhere in the cssagi-xj-Nvzora. Both middle cerebral arteries are patent without evidence of stenosis nor occlusion. No aneurysms. POSTERIOR CIRCULATION: The right vertebral artery is not visualized at the skull base and may be occluded. Left vertebral ar bettie is dominant and is the contributor to formation of the basilar artery. Basilar artery ascends in the midline with normal luminal diameter. Distally it gives off patent bilateral superior cerebellar arteries. Above this level the basilar artery terminates by giving off bilateral posterior cerebral arteries which are patent proximally. However, as was the case yesterday the flow signal within the l eft posterior cerebral artery posterior to the mesencephalon is less evident than on the right side w here there is demonstrated nicely patent distal segment. Incidentally noted are thin bilateral posterior communicating arteries on both sides of the [place]-of [place]. No aneurysm evident at the tip of the basilar artery nor elsewhere in the [id number]-ag-Repdwb. IMPRESSION: 1. Deficient flow in the right vertebral artery which does not exhibit flow signal at the skull base. The basilar artery is formed predominately by contribution from the patent left vertebral artery. 2. Asymmetric flow in the posterior cerebral arteries as described above. Both posterior cerebral art eries are patent proximally but there is less than optimal flow signal evident in the left posterior cerebral artery posterior to the midbrain level/perimesencephalic cistern. This may be significant fi nding giving the abnormal signal in the medial left temporal lobe at this level seen on the MRI study . DATA REPOSITORY:
--- NOTE | 2021-12-23 14:56 | PHA.REVIEW ---
Pharmacy Admission Review - Admission Clinical Review (Last Reviewed 12/22/21 @ 19:19 by Fadi Vernon MD) Acute ischemic left posterior cerebral artery (DETECTIVE HOMICIDE SQUAD) stroke (Acute) Seizure (Acute) No Known Allergies Allergy (Unverified 12/22/21 14:28) Resuscitation Status Full Code Height 6 ft Weight 89.9 kg - Renal Dosing Renal Dosing: BUN 19 mg/dL (7-18) H 12/22/21 11:40 Creatinine 1.1 mg/dL (0.70-1.30) 12/22/21 11:40 Medications needing adjustments: Reviewed (Crcl ~86 mL/min current meds okay) - Anticoagulation Anticoagulation: Hgb 13.8 g/dL (13.5-17.5) 12/23/21 05: Hct 40.7 % (40.0-50.0) 12/23/21 05:22 Plt Count 206 10^3/uL (130-400) 12/23/21 05:22 Creatinine 1.1 mg/dL (0.70-1.30) 12/22/21 11:40 DVT Prophylaxis: Reviewed Medications: Aspirin (Aspirin per neuro recommendation; pt also has SCDs ordered) Therapeutic Anticoagulation: N/A - Opiate Usage Evaluate Pain Scale/Pains Meds: N/A - Relevant Labs Sodium 140 mmol/L (136-145) 12/22/21 11:40 Potassium 3.3 mmol/L (3.5-5.1) L 12/22/21 11:40 Chloride 102 mmol/L (98-107) 12/22/21 11:40 Magnesium 1.9 mg/dL (1.8-2.4) 12/22/21 11:40 Electrolytes, C-Reactive P, ESR: Intervened (K+ a little low yesterday, no replacement ordered, not rechecked today. Will mention to provider.) - DM Control DM Control: Glucose 100 mg/dL (74-106) 12/22/21 11:40 Hemoglobin A1c 5.1 % (<5.7) 12/23/21 05:22 Insulin Dosing: N/A - Heart Failure/IN Heart Failure/IN: Troponin I < 50 ng/L (<or=60) 12/22/21 16:15 EF%, OMER's, B-Blockers, Diuretics: Reviewed - BP Control BP Control: Blood Pressure 144/91 Blood Pressure 133/96 Blood Pressure 148/99 Blood Pressure 141/99 Blood Pressure 139/107 Blood Pressure 138/89 Blood Pressure 139/89 Blood Pressure 141/86 Blood Pressure 140/92 List meds needing interventions: Has been normal to high so far this admission, provider is allowing permissive hypertension - Qtc Review If Elevated: N/A (QTc 443 on admission) - IV to PO Switch IV Medications: Reviewed - Home Meds Home Med List reviewed: Reviewed (no known home meds) - Current meds Current Medication Order Review: Reviewed - Comments Comments/Follow Ups: Watch BP, K+, labs and for med changes.
--- NOTE | 2021-12-23 16:29 | PT.INTREAT ---
Date of service: 12/23/21 Time of Service: 14:30 PT Notes Visit Reasons: Unresponsive Event Inpatient Physical Therapy Treatment Note [facility] Date: 12/23/2021 PRECAUTIONS: Activity as tolerated SUBJECTIVE: Cecilio states that he is feeling better. He does not understand why he is still being hospitalized, as he feels he is back to baseline. He is hopeful that he will be discharged to home tomorrow at the latest. OBJECTIVE: PAIN: No c/o pain BED MOBILITY/TRANSFERS/GAIT: Patient declines. States he is independent with all transfers and gait. THEREX: Issued HEP with specific focus on R LE strengthening due to slight weakness compared to L LE, to include: unilateral heel raises, quad sets, glute sets, squats, SSH and hip abduction. Reviewed and demonstrated all exercises. ASSESSMENT: Patient demonstrates good understanding of HEP and has no questions at this time. PLAN: Discharge from PT services. Patient to execute HEP as instructed for R LE strengthening. TREATMENT CODE/TIME: 15 minutes; 40493 (14:30)
--- NOTE | 2021-12-23 16:36 | CHAPLAIN ---
I visited Cecilio and his . Cecilio was resting in bed and his was sitting in a chair next to him. I explained my role and offered support. They did not seem interested in further conversation.
--- NOTE | 2021-12-23 17:46 | PGE_ITS ---
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 PT/OT have evaluated. Speech has cleared for regular diet. Cont ASA 81 mg daily A1c 5.1 Lipid panel: LDL 57 Atorvastatin 10mg QHS Echocardiogram unremarkable w/o shunt. Repaeat MRI/MRA head: Compared to the MRI scan performed yesterday there is evolution and some progression of ischemic involvement in the medial left occipitotemporal region, as described above.? The FLAIR and T2 sequences are ???catching up??? to the diffusion imaging findings.? In addition, on today's study there is an additional adjacent area of infarct now evident on DWI in the left medial occipitotemporal gyrus. Please note that today's MRA study reveals decreased flow in the left posterior cerebral artery at this level when compared to the opposite-right posterior cerebral artery.? There is also absence of flow signal in the right vertebral artery at the skull base.? Flow in the basilar artery is predominantly via the left patent vertebral artery. Neurology following. (2) Seizure: Status: Acute Assessment and plan: He has appeared to have suffered at least one seizure secondary to an acute left medial temporal/occipital stroke (EMAIL MARKETING MANAGER distribution) manifested by transient right hemiparesis, numbness, and aphasia. His symptoms have rapidly resolved though he is a bit fatigued and displaying some confusion at this time. Etiology of his stroke is unknown at this time. He had flawed vascular studies but the L EMAIL MARKETING MANAGER does appear intact as per the CTA. Continue close neurochecks. If any concern for decline/recurrent stroke symptoms, I would recommend consideration of IV heparin drip (no bolus) and transfer to higher level stroke center. Otherwise, per [place] state law where he lives, he cannot drive for a period of 12 months, though there is a clause that this could be shortened by the DMV... I discussed today with him a period of seizure freedom of at least 6 months before he is cleared to drive. 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 When discharged, will schedule a CHANDANA at [facility], monitoring tech (3) HTN (hypertension): Assessment and plan: Not on medications. Watch for hypotension. Subjective Subjective Patient reports: no new complaints and afebrile; denies nausea, vomiting or shortness of breath Interval history since last seen: No events overnight Exam Narrative Exam Narrative: Sitting up in bed. Conversant. Appears somewhat tired. Const General: cooperative and no acute distress Nutritional Appearance: average body habitus Orientation: awake and oriented x3 HENMT Head: normocephalic and atraumatic Ears: hearing grossly normal bilaterally Eyes General: appearance normal, both eyes and all related structures Sclera: sclerae normal Pupils: PERRL Neck Neck: full ROM and no JVD Resp Effort & Inspection: normal respiratory effort Auscultation: clear to auscultation bilaterally Cardio Rate: regular rate Rhythm: regular rhythm Heart Sounds: S1 normal and S2 normal GI Palpation: soft and nontender Skin General skin exam: no rashes or lesions noted Neuro General: no focal motor deficits Cranial Nerves: PERRL, no nystagmus and facial strength normal Speech: speech normal Extrem General: no pedal edema and no calf tenderness Psych Appearance: grossly normal Affect: normal affect Objective Last Vital Signs Temp 36.8 C 12/23/21 13:58 Pulse 70 12/23/21 11:01 Resp 16 12/23/21 11:01 BP 144/91 H 12/23/21 11:01 Pulse Ox 96 12/23/21 11:01 Laboratory Results - last 24 hr 12/22/21 12/23/21 12/23/21 22:09 05:22 05:22 WBC RBC Hgb 14.4 Hct 40.8 MCV MCH MCHC RDW Plt Count MPV Hemoglobin A1c 5.1 Triglycerides 311 H Total Cholesterol 156 LDL Cholesterol, Calc 57 HDL Cholesterol 37 L 12/23/21 05:22 WBC 9.24 RBC 4.59 Hgb 13.8 Hct 40.7 MCV 89 MCH 30.1 MCHC 33.9 D RDW 12.8 Plt Count 206 MPV 9.6 Hemoglobin A1c Triglycerides Total Cholesterol LDL Cholesterol, Calc HDL Cholesterol
[2021-12-23 20:22] LABS: Bilirubin Negative (Negative); Blood Negative (Negative); Clarity Clear (Clear); Glucose Negative (Negative); Ketones Negative (Negative); Leukocyte Esterase Negative (Negative); Nitrite Negative (Negative); Urobilinogen 0.2 EU/dL (Up TO 0.2)
[2021-12-23] MEDS: Atorvastatin 10 MG TAB PO (20:42)
[2021-12-24] VITALS (11 sets, daily range): BP systolic 105–147; BP diastolic 74–95; PULSE 66–81; RESP 13–21; TEMP 37–37.1; O2SAT 93–97
--- NOTE | 2021-12-24 08:16 | PDOC.CMPRO ---
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 He will follow up with his PCP and transport with his . CM will continue to follow.
[2021-12-24] MEDS: levETIRAcetam 1,000 MG in Normal Saline 100 ML 400 MG IVPB (10:30)
--- NOTE | 2021-12-24 10:32 | DSE_ITS ---
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 He endorsed having a normal morning, then when siting at his desk at work he developed right arm and leg weakness followed by generalized weakness with difficulty with speech.? These symptoms lasted for 5-10 minutes and resolved.? He then presented to the ED for evaluation and a stroke alert called.? On initial evaluation he moved all extremities and was oriented x 3.? Noncontrast CT was negative.? MRI and MRA brain/neck obtained.? While in MRI he had an unresponsive episode. He was then noted to have some blood from his mouth and a small tongue laceration.? He was confused with normal vital signs.? He gradually became more responsive but still drowsy.? Dr Orta, neurology, consulted and per her recommendation he was load with Keppra 2g IV. MRI/MRA brain showed?significant decrease in flow or occlusion of the left posterior cerebral artery which is an important finding given the findings on diffusion imaging in the medial left temporal lobe. Discussed with [facility] [place] regarding possible right middle cerebral artery occlusion, but they and Dr Orta stated this was not present. He was given an aspirin 81 mg daily and admitted for further stroke w/u. Repeat MRI brain showed evolving left medial temporal and occipital infarct. The etiology of the stroke is not clearly defined. The CTA head performed upon admission showed an intact left AIRLINE FLIGHT ATTENDANT; neurology believes the CTA to be a better study. TTE with bubble study did not show a shunt. Normal EF noted. LDL cholesterol was 57; atorvastatin 10mg nightly initiated. A1c was normal. He will continue keppra 1000mg BID. No further seizure activity noted after admission. PT/OT/speech evaluated and he had no significant deficits. Appointment [facility] neurology being scheduled for followup. Decision to perform an EEG or not will be deferred to [facility] neurolog[facility]. CHANDANA being scheduled at [facility] 30 day cardiac event monitor placed. Home Meds and New Rx's Prescriptions: New aspirin [Children's Aspirin] 81 mg Tablet,Chewable 81 mg PO DAILY Qty: 0 0RF atorvastatin 10 mg Tablet 10 mg PO QPM Qty: 30 0RF levetiracetam 1,000 mg tablet 1,000 mg PO BID Qty: 60 0RF Discharge Instructions Instructions: Nonepileptic Seizures (GEN) Referrals: Gina Rosenbaum [ [facility] STAFF PHYSICIAN] - (F/U for CVA and seizure) Activity:: No driving; 12 mos. Equipment/Supplies:: No Equipment Needed Diet:: Heart Healthy diet Discharge Orders Discharge Orders: Discharge Order (Routine); Ordered 12/24/21 Ordered By: Fadi Vernon Other Ambulatory Orders: Cardiac Event Recorder (Routine) Timeframe: 1 Month Facility: [facility] - Location: Respiratory Therapy Ordered By: Fadi Vernon DS: Summary Time Spent with Patient providing and/or coordinating discharge services: Greater than 30 minutes Status at Discharge Functional status at discharge: independent ambulation Overall status at discharge: patient is progressing back to baseline Mental Status: mental status grossly normal Speech and Movement: speech and movement normal Mood: congruent mood Affect: normal affect Exam Narrative Exam Narrative: Sitting up in bed. Conversant. Appears somewhat tired. Const General: cooperative and no acute distress Nutritional Appearance: average body habitus Orientation: awake and oriented x3 HENMT Head: normocephalic and atraumatic Ears: hearing grossly normal bilaterally Eyes General: appearance normal, both eyes and all related structures Sclera: sclerae normal Pupils: PERRL Neck Neck: full ROM and no JVD Resp Effort & Inspection: normal respiratory effort Auscultation: clear to auscultation bilaterally Cardio Rate: regular rate Rhythm: regular rhythm Heart Sounds: S1 normal and S2 normal GI Palpation: soft and nontender Skin General skin exam: no rashes or lesions noted Neuro General: no focal motor deficits Cranial Nerves: PERRL, no nystagmus and facial strength normal Speech: speech normal Extrem General: no pedal edema and no calf tenderness Psych Appearance: grossly normal Mental Status: mental status grossly normal Speech and Movement: speech and movement normal Mood: congruent mood Affect: normal affect DS: Data Vitals/I&O Vitals and I&O: Vital Signs Temperature 37.0 C 12/24/21 07:00 Temperature Source Temporal Artery Scan 12/24/21 07:00 Pulse 71 12/24/21 08:00 Pulse Rhythm Regular 12/22/21 15:39 Pulse 73 12/24/21 09:00 Respiratory Rate 18 12/24/21 09:00 Respiratory Effort Non-Labored 12/24/21 07:00 Respiratory Depth Normal 12/24/21 07:00 Respiratory Pattern Normal 12/24/21 07:00 Blood Pressure 133/82 12/24/21 08:00 Blood Pressure Mean 95 12/24/21 08:00 Blood Pressure Position Left Lateral 12/24/21 07:00 Pulse Oximetry 95 12/24/21 09:00 Oxygen Delivery Method Room Air 12/24/21 00:00 Oxygen Flow Rate 0 12/24/21 00:00 Pain Level 0 12/24/21 07:00 Intake & Output 12/23/21 12/23/21 12/24/21 11:59 23:59 11:59 Intake Total 330 / 810 480 / 810 240 / 240 Output Total 700 / 700 1600 / 1600 Balance 330 / 110 -220 / 110 -1360 / -1360 Weight 84.1 kg Intake: IV 330 / 570 240 / 570 Oral 240 / 240 240 / 240 Output: Urine 700 / 700 1600 / 1600 Other: Urine Color Pale Pale Yellow Urine Appearance Clear Clear Urine Odor Normal None Voiding Methods Urinal Urinal Data Completed and Pending Labs on day of discharge: Labs from last 24 hours 12/23/21 12/23/21 12/23/21 Unknown 17:13 17:12 Silica Clot Time Scrn Pending Fibrinogen Pending Dil Leobardo Viper [place] Pending Lupus Anticoag Interp Pending Functional Protein C Pending APC Resist Ratio (V) Pending APC Resistance Interp Pending Functional Protein S Pending Func Antithrombin III Pending Urine Color Urine Clarity Urine pH Ur Specific [place] Urine Protein Urine Ketones Urine Blood Urine Nitrite Urine Bilirubin Urine Urobilinogen Ur Leukocyte Esterase Urine Glucose Prothrombin Specimen Pending Prothrombin [id number] Mut Pending 12/22/21 18:45 Silica Clot Time Scrn Fibrinogen Dil Leobardo Viper [place] Lupus Anticoag Interp Functional Protein C APC Resist Ratio (V) APC Resistance Interp Functional Protein S Func Antithrombin III Urine Color Yellow Urine Clarity Clear Urine pH 7.0 Ur Specific [place] 1.010 Urine Protein Negative Urine Ketones Negative Urine Blood Negative Urine Nitrite Negative Urine Bilirubin Negative Urine Urobilinogen 0.2 Ur Leukocyte Esterase Negative Urine Glucose Negative Prothrombin Specimen Prothrombin [id number] Mut PFSH All Active Problems Acute ischemic left posterior cerebral artery (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
[2021-12-24] MEDS: Normal Saline Flush 10 ML SYR (10:39)
[2021-12-24] MEDS: Aspirin 81 MG CHEW PO (10:55)
--- NOTE | 2021-12-24 12:16 | CMDISCH_ITS ---
- If Service Date Differs Date of service: 12/24/21 Time of Service: 12:17 LACE Index Scoring Tool - Questions: Length of Stay (in days): 2 Acuity (Admit via E.D.?): Yes Comorbidities: Cerebrovascular Disease E.D. Visits: 1 - Answers: Total Score: 7 Risk of Readmission: Low Risk Care Management Discharge Reason for Hospitalization: Acute ischemic left posterior cerebral artery (CREW BOSS) stroke, unresponsive event Discharge Plan: Cecilio is discharged home via private vehicle with family with a Cardiac Event Recorder. He will follow up with his PCP and [facility] [place] medicine will call pt regarding an appt for his transesophageal Echocardiogram (CHANDANA). [facility] Neurology will also call patient to schedule, and will decided if a EEG is needed or not. Patient/Family Education Needs: Review discharge instructions, limitations, medications and plan to follow up with community providers/ ask me three.
[2021-12-24 17:52] LABS: Fibrinogen 470 mg/dL (171-384)
[2021-12-25 09:37] LABS: Antithrombin 3, Funct. 120 % (85-125)
[2021-12-28 15:23] LABS: Dilute Russell Viper Venom 46.7 secs (25.2-42.2); LA Cascade Summary (See Note); Silica Clotting Time 45.8 secs (30.2-48.4)
[2021-12-29 09:29] LABS: Prothrombin G20210A Mutation Negative (Negative)
[2021-12-30 11:49] LABS: Protein C, Functional 149 % (71-199); Protein S, Functional >150 % (73-156)
--- NOTE | 2022-01-21 15:38 | NUR.NOTE ---
Nursing Note: Lula RN shares note taken form call from patient today. Pt reports he is unable to reach his PCP to reorder atorvostatin and keppra. Contact made with PCP by this RN. Arabella LEMONS at [facility] reports script called to [facility] in [place] at noon today. Arabella LEMONS states she will call pt now to update him.
--- NOTE | 2022-04-08 09:28 | W.CARDEVENT ---
Date of service: 04/08/22 Time of Service: 09:28 Cardiac Event Recorder Referring Provider:: Fadi Vernon Indications:: Syncope Cardiac Event Note: This is a 30-day event monitor ordered for syncope. Patient was monitored from December 24 through January 22, 2022. A total of 4 days and 7 hours was available for review Rhythm throughout was sinus with an average heart rate of 69. There were no significant dysrhythmias recorded. There were no apparent patient's symptoms
== END 2021-12-24 12:42 | disposition home or self-care (01) | DRG 65 ==
LOC: ER 14:20 → MS 15:25 → ICU 18:17
PROVIDERS: Internal Medicine; Psychiatry & Neurology Neurology; Admitting Provider Family Medicine; Emergency Provider Physician Assistant; Visit Provider Family Medicine
DX: I63.532 Cerebral infarction due to unspecified occlusion or stenosis of left posterior cerebral artery (principal); G81.91 Hemiplegia, unspecified affecting right dominant side; I10 Essential (primary) hypertension; R29.810 Facial weakness; R53.1 Weakness; R56.9 Unspecified convulsions; Z87.891 Personal history of nicotine dependence; S01.512A Laceration without foreign body of oral cavity, initial encounter; W19.XXXA Unspecified fall, initial encounter
CPT/HCPCS: 36415; 70496; 70498; 70544; 80053; 80061; 81240; 85027; 85300; 85306; 85307; 85384; 87116; 87635; 93005; 96361; 96374; 97116; 97161; 97165; 99291; 70450; 70551; 71045; 81003; 83036; 83735; 84484; 85014; 85018; 85025; 85303; 93010; 93306; 99223; 99232; 99239; J1953